=== PATIENT | female | born 2000 | race African-American/Black ===

== ENCOUNTER 2018-12-13 13:24 | Emergency (ER) | payer OTHER ==
[~2018-12-13] VITALS: Ht 167.6 cm; Wt 62.6 kg
[2018-12-13 13:32] VITALS: Ht 167.6 cm; Wt 62.6 kg
[2018-12-13 14:04] LABS: BASOPHIL % 0.5 % (0-2); PLATELET COUNT 246 x10^3mcL (130-400); RED CELL DISTRIBUTION WIDTH 14.3 % (11.5-14.5)
[2018-12-13 15:50] VITALS: BP 89/67
== END 2018-12-13 15:50 | disposition home or self-care (01) ==
LOC: ED 13:24
DX: O20.0 Threatened abortion (principal)
CPT/HCPCS: 36415

== ENCOUNTER 2019-01-01 18:01 | Emergency (ER) | payer OTHER ==
[~2019-01-01] VITALS: Ht 167.6 cm; Wt 63.5 kg
[2019-01-01 18:07] VITALS: Ht 167.6 cm; Wt 63.5 kg
[2019-01-01 19:29] VITALS: BP 90/54
== END 2019-01-01 20:00 | disposition home or self-care (01) ==
LOC: ED 18:01
DX: O26.892 Other specified pregnancy related conditions, second trimester (principal); R10.30 Lower abdominal pain, unspecified

== ENCOUNTER 2019-03-11 11:51 | Emergency (ER) | payer OTHER ==
[~2019-03-11] VITALS: Ht 167.6 cm; Wt 74.8 kg
[2019-03-11 12:00] VITALS: Ht 167.6 cm; Wt 74.8 kg
[2019-03-11 13:25] LABS: BASOPHIL % 0.3 % (0-2); PLATELET COUNT 207 x10^3mcL (130-400)
[2019-03-11 13:26] LABS: RED CELL DISTRIBUTION WIDTH 15.8 % (11.5-14.5)
[2019-03-11 13:53] LABS: microscopic required? NO
[2019-03-11 13:54] LABS: ALKALINE PHOSPHATASE 80 U/L (46-116); ALT/SGPT 21 U/L (14-59); AST/SGOT 14 U/L (15-37); BILIRUBIN TOTAL 0.1 mg/dL (0.20-1.00); CALCIUM 8.6 mg/dL (8.5-10.1); CHLORIDE SERUM 104 mmol/L (98-107); CREATININE SERUM 0.6 mg/dL (0.6-1.0); GFR1 > 60 mL/min; LIPASE 50 IU/L (73-393); SODIUM SERUM 138 mmol/L (136-145)
[2019-03-11 14:03] LABS: GLUCOSE SERUM 51 mg/dL (74-106)
[2019-03-11 14:05] LABS: UA SPECIFIC GRAVITY 1.015 (1.005-1.035); urine erythrocyte NEGATIVE (NEGATIVE)
[2019-03-11 15:47] VITALS: BP 114/57
== END 2019-03-11 15:47 | disposition home or self-care (01) ==
LOC: ED 11:51
PROVIDERS: Emergency Medicine
DX: O26.892 Other specified pregnancy related conditions, second trimester (principal); O21.8 Other vomiting complicating pregnancy; R10.30 Lower abdominal pain, unspecified; R10.2 Pelvic and perineal pain; Z3A.23 23 weeks gestation of pregnancy
CPT/HCPCS: J2765; J7030; Q0092